=== PATIENT | female | born 1995 | race Caucasian/White ===

== ENCOUNTER 2018-02-19 07:15 | Emergency (ER) | payer BC, OTHER ==
--- NOTE | 2018-02-19 07:48 | EKG ---
FACILITY: [facility] PATIENT NAME: PRABHJOT SOTO : [id number] MR: [id number]: [id number] EXAM DATE: ORDERING PHYSICIAN: ROBERT ATKINS TECHNOLOGIST: HU STANTON Test Reason : SYNCOPE Blood Pressure : / mmHG Vent. Rate : 057 BPM Atrial Rate : 057 BPM P-R Int : 126 ms QRS Dur : 088 ms QT Int : 428 ms P-R-T Axes : 070 062 039 degrees QTc Int : 416 ms Sinus bradycardia Otherwise normal ECG No previous ECGs available Confirmed by KYLE BRANDT ([id number]) on 02/19/2018 12:47:12 PM Referred By: Bettina ATKINS Confirmed By:KYLE BRANDT
--- NOTE | 2018-02-19 07:57 | ER Report ---
History and Physical Time Seen By MD: 07:20 Hx. 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 STATES HAD BREAKFAST, NOT DIABETIC, GOOD NIGHT SLEEP. 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 She attempted to squat down, get water, then sit down, but symptoms persisted. During this time she had tunnel vision which lasted about 2-1/2 minutes. Patient noted that it was not until she lied down that her symptoms resolved. During this and afterwards she did not have headache, chest pain, shortness breath, abdominal pa in, nausea. Patient notes this has happened a couple times previously without clear precipitants. Patient states the symptoms have resolved at this point. She did eat breakfast, and has an hydrated. She is taking no supplements and other than multivitamin. She is taking no medication other than OCPs. There is no family history of diabetes, sudden . 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 REVIEW OF SYSTEMS: Constitutional: No fever, no chills. Eyes: No discharge. ENT: No sore throat. Cardiovascular: No chest pain, no palpitations. Respiratory: No cough, no shortness of breath. Gastrointestinal: No abdominal pain, no vomiting. Genitourinary: No dysuria Musculoskeletal: No back pain. Skin: No rashes. Neurological: No headache. Remainder of the 14 system rev: Yes Reviewed Nurses Notes: Yes Constitutional Vital Sign - Last 24 Hours 02/19/18 02/19/18 02/19/18 02/19/18 07:15 07:16 07:30 07:45 Temp 97.5 Pulse 53 48 73 Resp 22 20 8 23 B/P (MAP) 102/60 96/77 (83) Pulse Ox 96 97 98 91 O2 Delivery Room Air 02/19/18 02/19/18 02/19/18 02/19/18 07:50 07:55 07:59 08:00 Pulse 55 58 67 Resp 9 19 18 B/P (MAP) 98/69 (79) Pulse Ox 98 98 97 Physical Exam General Appearance: The patient is alert, has no immediate need for airway protection and no signs of toxicity. [ ] Eyes: Pupils equal and round no pallor or injection. ENT, Mouth: Mucous membranes are moist. Respiratory: There are no retractions, lungs are clear to auscultation. Cardiovascular: Regular rate and rhythm. no m/r/g Gastrointestinal: Abdomen is soft and non tender, no masses, bowel sounds n ormal. Neurological: alert, oriented x 4, cn ii-xii intact Skin: Warm and dry, no rashes. Musculoskeletal: Extremities are nontender, nonswollen and have full range of motion. DIFFERENTIAL DIAGNOSIS: After history and physical exam differential diagnosis was considered for syncope including but not limited to electrolyte abnormality, PE, vasovagal syncope, arrhythmia, dehydration, and blood loss. Medical Decision Making Data Points Laboratory Hematology Test 02/19/18 07:25 02/19/18 07:37 Human Chorionic Gonadotropin, Qual Negative (NEGATIVE) Whole Blood Glucose 142 mg/DL (75-110) Chemistry Test 02/19/18 07:25 02/19/18 07:37 Human Chorionic Gonadotropin, Qual Negative (NEGATIVE) Whole Blood Glucose 142 mg/DL (75-110) EKG/Imaging EKG Interpretation 12 lead EKG: Rhythm: Normal sinus rhythm Francisco: Normal QRS: Normal ST segments: Normal Monitor Interpretation: Normal Sinus Rhythm ED Course/Re-evaluation ED Course Pt remained symptom free in ED. Of note, she remained borderline bradycardic and hypotensive as she states is normal for her. She was offered but refused iv hydration. HD stable on d/c; discussed borderline high glucose and need for f/u, though may well be acute phase reactant. Understands SRP's and need for f/u. Decision to Disposition Date: Feb 19, 2018 Decision to Disposition Time: 09:10 Depart Departure Latest Vital Signs Vital Signs Date Time Temp Pulse Resp B/P (MAP) Pulse Ox O2 Delivery O2 Flow Rate FiO2 02/19/18 08:00 67 18 97 02/19/18 07:59 98/69 (79) 02/19/18 07:16 97.5 Room Air Impression: Primary Impression: Near syncope Additional Impression: Hyperglycemia Condition: Improved Disposition: HOME OR SELF-CARE Patient Instructions: Hyperglycemia, Non-Diabetic (ED), Near Syncope (ED) Additional Instructions: Follow up with a primary doctor for re-evaluation and to have glucose checked to make sure you do not have high blood sugar. Return for worsening symptoms or any concerns. Problem Qualifiers ROBERT ATKINS MD Feb 19, 2018 07:57
[2018-02-19 07:59] VITALS: BP 98/69
== END 2018-02-19 08:16 | disposition home or self-care (01) ==
LOC: EDUNIT# 07:15 → ER 07:21
DX: R55 Syncope and collapse (principal); R73.9 Hyperglycemia, unspecified
CPT/HCPCS: 36416; 82948; 84703; 93005; 99283